=== PATIENT | female | born 1955 | race Two or more races ===

== ENCOUNTER 2025-02-24 14:40 | Emergency (ER) | payer OTHER ==
[~2025-02-24] VITALS: Ht 167.6 cm; Wt 63.6 kg
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
[2025-02-24] MEDS: ACETAMINOPHEN 325 MG TAB PO ONE (16:22)
[2025-02-24 16:27] VITALS: BP 159/77; PULSE 84; RESP 19; TEMP 98.1; O2SAT 99
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
== END 2025-02-24 18:16 | disposition home or self-care (01) ==
LOC: EDBD 14:40 → ER 14:40
DX: S29.011A Strain of muscle and tendon of front wall of thorax, initial encounter (principal); S29.012A Strain of muscle and tendon of back wall of thorax, initial encounter; I10 Essential (primary) hypertension; E11.9 Type 2 diabetes mellitus without complications; Z88.0 Allergy status to penicillin; Z98.890 Other specified postprocedural states; V89.2XXA Person injured in unspecified motor-vehicle accident, traffic, initial encounter; Y93.I9 Activity, other involving external motion; Y92.488 Other paved roadways as the place of occurrence of the external cause; Y99.8 Other external cause status
CPT/HCPCS: 71046; 72070